=== PATIENT | female | born 1980 | race Hispanic/Latino ===

== ENCOUNTER 2018-02-27 09:12 | Emergency (ER) | payer OTHER ==
--- NOTE | 2018-02-27 09:21 | C.PDOC ---
History Of Present Illness 37 year old female, with no significant PMHx, presents to the ED for evaluation of cough and congestion which began 2-3 weeks ago. Patient states her symptoms are consistent with seasonal allergies. Patient is also complaining of right upper back pain. She has been taking Motrin for her back pain, but has not taken anything for her other symptoms. Patient denies fever, chills, shortness of breath, and chest pain. Time Seen by Provider: 02/27/18 09:15 History Per: Patient History/Exam Limitations: None Onset/Duration Of Symptoms: Other (2-3 weeks ) Current Symptoms Are (Timing): Still Present Past Medical History Reviewed: Historical Data, Nursing Documentation, Vital Signs Vital Signs: Last Vital Signs Temp 98.3 F 02/27/18 09:18 Pulse 83 02/27/18 09:18 Resp 20 02/27/18 09:18 BP 119/84 02/27/18 09:18 Pulse Ox 99 02/27/18 09:18 - Medical History PMH: No Chronic Diseases Surgical History: No Surg Hx Family History: States: Unknown Family Hx Review Of Systems Constitutional: Negative for: Fever, Chills ENT: Positive for: Nose Congestion Cardiovascular: Negative for: Chest Pain Respiratory: Positive for: Cough. Negative for: Shortness of Breath Musculoskeletal: Positive for: Back Pain (right, upper ) Physical Exam - Physical Exam Appears: Non-toxic, No Acute Distress Skin: Normal Color, Warm, Dry Head: Atraumatic, Normacephalic Eye(s): bilateral: Normal Inspection Ear(s): Bilateral: Normal Nose: Normal, No Discharge Oral Mucosa: Moist Throat: Normal, No Erythema, No Exudate Neck: Supple Chest: Symmetrical, No Deformity, No Tenderness Cardiovascular: Rhythm Regular, No Murmur Respiratory: Normal Breath Sounds, No Rales, No Rhonchi, No Wheezing Back: No Vertebral Tenderness, No Paraspinal Tenderness Extremity: Normal ROM, Capillary Refill (less than 2 seconds ) Neurological/Psych: Oriented x3, Normal Speech, Normal Cognition ED Course And Treatment O2 Sat by Pulse Oximetry: 99 (on RA) Pulse Ox Interpretation: Normal Medical Decision Making Medical Decision Making: On reassessment, patient is resting comfortably, showing no signs of distress, remains afebrile and is stable for discharge. Patient is advised to follow up with her PMD within 1-2 days for further evaluation and/or return to the ED if symptoms persist or worsen. Disposition Counseled Patient/Family Regarding: Diagnosis, Need For Followup, Rx Given - Disposition Disposition: HOME/ ROUTINE Disposition Time: 09:21 Condition: STABLE Prescriptions: Mometasone Furoate [Nasonex] 0.05 mg NS BID #1 bottle Forms: [employer] [facility] ([place]), General Discharge Instructions - POA Present On Arrival: None - Clinical Impression Clinical Impression: Seasonal allergies, Cough - Scribe Statement The provider has reviewed the documentation as recorded by the Scribe (Poornima Gusman) Provider Attestation: All medical record entries made by the Scribe were at my direction and personally dictated by me. I have reviewed the chart and agree that the record accurately reflects my personal performance of the history, physical exam, medical decision making, and the department course for this patient. I have also personally directed, reviewed, and agree with the discharge instructions and disposition.
[2018-02-27 09:23] VITALS: BP 119/84; PULSE 83; RESP 20; TEMP 98.3; O2SAT 99
== END 2018-02-27 09:29 | disposition home or self-care (01) ==
LOC: C.ER 09:12
DX: J30.2 Other seasonal allergic rhinitis (principal); R05 Cough; Z87.891 Personal history of nicotine dependence

== ENCOUNTER 2018-08-08 10:40 | Emergency (ER) | payer OTHER ==
[2018-08-08 10:54] VITALS: BP 123/84; PULSE 98; RESP 18; TEMP 98; O2SAT 98
--- NOTE | 2018-08-08 11:19 | C.PDOC ---
History Of Present Illness 37 year old female presents to the ED for evaluation of left buttock pain that radiates down her left lateral leg and thigh for 3 days. Patient states the pain was mild yesterday; she applied heating pads overnight and her symptoms worsened this morning. Patient denies any acute injuries to the area. Time Seen by Provider: 08/08/18 10:50 Chief Complaint (Nursing): Back Pain History Per: Patient History/Exam Limitations: no limitations Onset/Duration Of Symptoms: Days (3) Current Symptoms Are (Timing): Still Present Quality Of Discomfort: "Pain" Previous Symptoms: denies: Prior Injury Additional History Per: Patient Past Medical History Reviewed: Historical Data, Nursing Documentation, Vital Signs - Medical History PMH: No Chronic Diseases Surgical History: No Surg Hx Family History: States: Unknown Family Hx - Social History Hx Alcohol Use: No Hx Substance Use: No - Immunization History Hx Tetanus Toxoid Vaccination: No Review Of Systems Musculoskeletal: Positive for: Leg Pain (left, lateral ), Other (left buttock pain, left thigh pain ) Physical Exam - Physical Exam Appears: Non-toxic, Other (in mild distress ) Skin: Normal Color, Warm, Dry Extremity: Normal ROM, Tenderness (to left pyriformis), Capillary Refill (less than 2 seconds ) Neurological/Psych: Oriented x3, Normal Speech, Normal Cognition, Normal Motor, Normal Sensation Gait: Steady ED Course And Treatment O2 Sat by Pulse Oximetry: 98 (on RA) Pulse Ox Interpretation: Normal Progress Note: Motrin PO given. Medical Decision Making Medical Decision Making: L pyriformis synd sciatica symptoms worse with heat pack overnight no injury, no trauma normal neuro Disposition Doctor Will See Patient In The: Office Counseled Patient/Family Regarding: Studies Performed, Diagnosis - Disposition Referrals: Robin Wilder Jr., MD [Medical Doctor] - Disposition: HOME/ ROUTINE Disposition Time: 10:58 Condition: GOOD Additional Instructions: Pyriformis Syndrome: ice packs to the L pyriformis/buttock area 1/2 hour per hour, nothing hot motrin/advil/Ibuprofen 400-600 mg every 6 hours as needed throw away the heating pad! Instructions: Sciatica (DC) Forms: [employer] [facility] ([place]anish) - Clinical Impression Clinical Impression: Sciatica of left side - Scribe Statement The provider has reviewed the documentation as recorded by the Scribe (Poornima Gusman) Provider Attestation: All medical record entries made by the Scribe were at my direction and personally dictated by me. I have reviewed the chart and agree that the record accurately reflects my personal performance of the history, physical exam, medical decision making, and the department course for this patient. I have also personally directed, reviewed, and agree with the discharge instructions and disposition.
== END 2018-08-08 11:59 | disposition home or self-care (01) ==
LOC: C.ER 10:40
DX: M54.32 Sciatica, left side (principal)